=== PATIENT | female | born 1965 | race Caucasian/White ===

== ENCOUNTER 2016-04-23 06:33 | Day surgery (SDC) | payer BC ==
[~2016-04-23] VITALS: Ht 165.1 cm; Wt 86.4 kg
[~2016-04-23 06:33] MED LIST: CYMBALTA60 MG PO; NASONEX17 GM BOTH NARES
[2016-04-23 07:06] VITALS: BP 128/73
[2016-04-23 12:18] VITALS: BP 119/81
[2016-04-23 13:20] VITALS: BP 122/81
== END 2016-04-23 13:25 | disposition home or self-care (01) ==
LOC: SDC 06:33
DX: J32.0 Chronic maxillary sinusitis (principal)
CPT/HCPCS: 88305; J0330; J0690; J1100; J2405; J2765; J3010; J3301; J7050